=== PATIENT | female | born 1980 ===

== ENCOUNTER 2022-05-24 07:07 | Emergency (ER) | payer OTHER | END 2022-05-24 08:16 | disposition home or self-care (01) | LOC: FB.ED 07:07 | DX: L03.111 Cellulitis of right axilla (principal); E11.9 Type 2 diabetes mellitus without complications; E78.5 Hyperlipidemia, unspecified; I10 Essential (primary) hypertension; C95.90 Leukemia, unspecified not having achieved remission; E78.00 Pure hypercholesterolemia, unspecified; Z79.899 Other long term (current) drug therapy; Z79.4 Long term (current) use of insulin | CPT/HCPCS: 99283 ==